=== PATIENT | male | born 1940 | race Caucasian/White ===

== ENCOUNTER → 2020-11-07 | Outpatient (CLI) | payer MEDICARE ==
[2020-11-07 21:24] LABS: SODIUM 142 MMOL/L (135-145)
[2020-11-07 21:25] LABS: BUN/CREATININE RATIO 29; CALCIUM 8.7 MG/DL (8.5-10.1); CARBON DIOXIDE 24 MMOL/L (21-32); CHLORIDE 107 MMOL/L (98-107); CREATININE SERUM 0.93 MG/DL (0.60-1.30); GFR ESTIMATED > 60; GLUCOSE 180 MG/DL (70-105)
[2020-11-07 21:35] LABS: HEMATOCRIT 38 % (40-54); MEAN CORPUSCULAR HEMOGLOBIN 28 PG (25-34); MEAN CORPUSCULAR HGB CONC 32 G/DL (32-36); MEAN CORPUSCULAR VOLUME 89 FL (80-99); MEAN PLATELET VOLUME 9.9 FL (7.4-10.4); PLATELET COUNT 429 10^3/uL (130-400)
[2020-11-07 21:36] LABS: BASOPHILS % (AUTO) 0 % (0-10); EOSINOPHILS % (AUTO) 0 % (0-10); LYMPHOCYTES # (AUTO) 0.8 X 10^3 (1.0-4.0); LYMPHOCYTES % (AUTO) 6 % (12-44); MONOCYTES # (AUTO) 0.4 X 10^3 (0.0-1.0); MONOCYTES % (AUTO) 3 % (0-12); NEUTROPHILS # (AUTO) 11.6 X 10^3 (1.8-7.8); NEUTROPHILS % (AUTO) 89 % (42-75)
[2020-11-07 21:37] LABS: ATYPICAL LYMPHOCYTES 3 %; BAND NEUTROPHILS 3 %; LYMPHOCYTES % (MANUAL) 4 %; METAMYELOCYTES % 1 %; MONOCYTES % (MANUAL) 6 %; NEUTROPHILS % (MANUAL) 83 %
== END ==
LOC: LAB FS 18:52
PROVIDERS: ATTEND Family Medicine
DX: N17.9 Acute kidney failure, unspecified (principal); M06.9 Rheumatoid arthritis, unspecified
CPT/HCPCS: 36415; 80048; 85007; 85027